=== PATIENT | female | born 1955 | race Caucasian/White ===

== ENCOUNTER 2023-06-02 14:04 | Emergency (ER) | payer OTHER ==
[~2023-06-02] VITALS: Ht 167.6 cm; Wt 59.0 kg
[2023-06-02 14:55] VITALS: BP 126/68; PULSE 90; RESP 18; TEMP 98; O2SAT 98
[2023-06-02] MEDS ORDERED: KETOROLAC 60 MG/2 ML VIAL IM ONE (16:40)
[2023-06-02 17:00] VITALS: BP 126/68; PULSE 90; RESP 18; TEMP 98; O2SAT 98
[2023-06-02] MEDS ORDERED: IBUP-2213 PO (17:09)
[2023-06-02] MEDS ORDERED: ACET-8905 PO (17:09)
== END 2023-06-02 16:49 | disposition home or self-care (01) ==
LOC: MED 14:04
DX: S20.212A Contusion of left front wall of thorax, initial encounter (principal); E11.9 Type 2 diabetes mellitus without complications; F17.200 Nicotine dependence, unspecified, uncomplicated; W18.39XA Other fall on same level, initial encounter; Y92.89 Other specified places as the place of occurrence of the external cause; Y93.89 Activity, other specified; Y99.8 Other external cause status
CPT/HCPCS: 71101; 96372; 99283; J1885